=== PATIENT | male | born 1990 | race African-American/Black ===

== ENCOUNTER 2016-10-25 16:59 | Emergency (ER) | payer SELFPAY ==
--- NOTE | ~2016-10-25 | CR229 ---
[facility] A Service of [facility] & [facility] RADIOLOGY TEXT RESULTS PATIENT: JLUIS TOLBERT LOCATION: CFTX : 89 UNIT #: [id number] AGE: [address]: Deandra Panda SEX: M ORDER DR: [id number] [facility] [address] [place], [place] [address] [id number] E MR#: [id number] Acc #: [id number] NAME: JLUIS TOLBERT : 1990 SEX: M STUDY DATE/TIME: 10/25/2016 16:08 UNIT: [facility] ROOM: STUDY DESCRIPTION: CR Shoulder Min 2 View Lt Attending Physician: Deandra Panda P.A.-C. Ordering Physician: Deandra Panda P.A.-C. Primary Care Physician: No Primary Care Physician MEDICAL IMAGING REPORT This report is preliminary unless electronic signature is present EXAM Left shoulder series 10/25/2016 HISTORY Pain lateral shoulder pain mostly when moving shoulder began yesterday. Basketball injury. FINDINGS AP internal and external rotation views of the left shoulder presented with transscapular view. No fracture or traumatic malalignment. Acromioclavicular and glenohumeral joint relationships are normal. Periarticular soft tissues are unremarkable. Visualized bony thorax normal. Visualized pulmonary parenchyma clear. If it would assist in patient management, shoulder could be further evaluated with MRI if the patient is a candidate and if patient's symptoms persist. Dictated by... Jean Paul Jones M.D. THIS IS AN ELECTRONICALLY VERIFIED REPORT Jean Paul Jones M.D. at 10/30/2016 11:00 AM SERINA/dre TD: 10/25/2016 18:11 JOB #: [id number] MEDICAL IMAGING REPORT Page 1 of 1 COPY
[~2016-10-25 16:59] MED LIST: IBUPROFEN PO; IBUPROFEN800 MG PO
== END 2016-10-25 17:00 | disposition home or self-care (01) ==
LOC: CFTX 16:59
DX: S46.012A Strain of muscle(s) and tendon(s) of the rotator cuff of left shoulder, initial encounter (principal); S46.812A Strain of other muscles, fascia and tendons at shoulder and upper arm level, left arm, initial encounter; W18.09XA Striking against other object with subsequent fall, initial encounter; Y93.67 Activity, basketball
CPT/HCPCS: 73030; 99283